=== PATIENT | male | born 1950 | race Caucasian/White ===

== ENCOUNTER 2019-02-26 13:55 | Outpatient (CLI) | payer MEDICARE ==
[2019-02-26] VITALS (17 sets, daily range): BP systolic 70–134; BP diastolic 50–80
== END 2019-02-26 23:59 | disposition home or self-care (01) ==
LOC: CARD DIAG 13:55
PROVIDERS: ATTEND Internal Medicine Interventional Cardiology
DX: R55 Syncope and collapse (principal)
CPT/HCPCS: 93660